=== PATIENT | male | born 1960 | race Caucasian/White ===

== ENCOUNTER → 2018-01-26 | Outpatient (CLI) | payer SELFPAY ==
[~2018-01-26] MED LIST: ALBU90OI61; ASPI81CH PO; RANI150 PO
[2018-01-26 18:35] LABS: PSA, %Free 16.3 %; PSA, Free 0.102 ng/mL; Prostate Specific Antigen 0.626 ng/mL (0.000-4.000)
== END ==
LOC: LAB 09:09 → LAB SHORT 09:09
PROVIDERS: Nurse Practitioner Family
DX: Z12.5 Encounter for screening for malignant neoplasm of prostate (principal)
CPT/HCPCS: 84153; 84154